=== PATIENT | female | born 1955 | race Caucasian/White ===

== ENCOUNTER 2024-11-19 08:44 | Outpatient (CLI) | payer MEDICARE | END 2024-11-19 08:45 | disposition home or self-care (01) | LOC: CSHRAD 08:44 | PROVIDERS: ATTEND Internal Medicine | DX: M79.642 Pain in left hand (principal); M79.641 Pain in right hand ==

== ENCOUNTER 2024-11-19 09:02 | Outpatient (CLI) | payer MEDICARE | END 2024-11-19 09:03 | disposition home or self-care (01) | LOC: CSHMAMMO 09:02 | PROVIDERS: ATTEND Internal Medicine | DX: Z12.31 Encounter for screening mammogram for malignant neoplasm of breast (principal) | CPT/HCPCS: 77063; 77067 ==